=== PATIENT | female | born 1995 | race Caucasian/White ===

== ENCOUNTER 2022-03-10 10:13 | Outpatient (CLI) | payer OTHER, SELFPAY ==
[2022-03-10 10:43] LABS: Basophils Absolute Auto 0.1 K/mm3 (0.0-0.1); Basophils Percent Auto 0.5 % (0.2-1.2); Eosinophils Absolute Auto 0.1 K/mm3 (0-0.3); Eosinophils Percent Auto 0.7 % (0-4.4); Hematocrit 34.2 % (37.0-47.0); Immature Granulocyte Absolute 0.05 K/mm3 (0.00-0.031); Immature Granulocyte Percent A 0.5 % (0-0.5); Lymphocytes Percent Auto 13.3 % (18.3-44.2); Mean Corpuscular HGB Conc 32.2 g/dl (32-36); Mean Corpuscular Hemoglobin 28.7 pg (26-34); Mean Corpuscular Volume 89.3 fl (80-100); Mean Platelet Volume 9.4 fl (7.4-10.4); Monocytes Absolute Auto 0.6 K/mm3 (0.1-0.6); Monocytes Percent Auto 5.7 % (2.6-8.5); Neutrophils Absolute Auto 8.4 K/mm3 (1.3-6.7); Neutrophils Percent Auto 79.3 % (45.5-73.1); Platelet Count Result 286 k/mm3 (150-375); Red Blood Count 3.83 M/mm3 (4.2-5.4); Red Cell Distribution Width 13.6 % (11.5-14.5); White Blood Count 10.5 K/mm3 (4.5-10.0)
[2022-03-10 11:40] LABS: HIV 1/2 Ab P24 Ag Result Negative (Negative)
[2022-03-10 11:56] LABS: Hepatitis B Surface Antigen Negative (Negative); Rubella IgG Antibody 28.2 IU/ML
[2022-03-12 12:44] LABS: Rapid Plasma Reagin Non-Reactive (NonReactive)
== END 2022-03-10 10:14 | disposition home or self-care (01) ==
LOC: ANHLAB 10:16
PROVIDERS: PCP Family Medicine; Visit Provider Obstetrics & Gynecology
DX: N94.89 Other specified conditions associated with female genital organs and menstrual cycle (principal)
CPT/HCPCS: 36415; 81291; 85025; 86592; 86644; 86703; 86747; 86762; 86787; 86850; 86900; 86901; 87086; 87340; G0432

== ENCOUNTER 2022-07-21 11:00 | Outpatient (CLI) | payer BC, SELFPAY ==
[2022-07-21 13:17] LABS: Basophils Percent Auto 0.4 % (0.2-1.2); Eosinophils Percent Auto 0.5 % (0-4.4); Hematocrit 32.4 % (37.0-47.0); Hemoglobin 10.7 g/dL (12.0-15.0); Immature Granulocyte Absolute 0.04 K/mm3 (0.00-0.031); Immature Granulocyte Percent A 0.5 % (0-0.5); Lymphocytes Absolute Auto 1.64 K/mm3 (0.9-3.2); Lymphocytes Percent Auto 19.6 % (18.3-44.2); Mean Corpuscular Hemoglobin 31.1 pg (26-34); Mean Corpuscular Volume 94.2 fl (80-100); Mean Platelet Volume 9.3 fl (7.4-10.4); Monocytes Absolute Auto 0.3 K/mm3 (0.1-0.6); Monocytes Percent Auto 4.1 % (2.6-8.5); Neutrophils Absolute Auto 6.3 K/mm3 (1.3-6.7); Neutrophils Percent Auto 74.9 % (45.5-73.1); Platelet Count Result 284 k/mm3 (150-375); Red Blood Count 3.44 M/mm3 (4.2-5.4); Red Cell Distribution Width 13.5 % (11.5-14.5); White Blood Count 8.4 K/mm3 (4.5-10.0)
[2022-07-21 13:26] LABS: Glucose 1 Hour PP 50gm Dose 128 mg/dL
[2022-07-21 14:07] LABS: HIV 1/2 Ab P24 Ag Result Negative (Negative)
== END 2022-07-21 11:01 | disposition home or self-care (01) ==
LOC: ANHLAB 11:02
PROVIDERS: PCP Family Medicine; Visit Provider Obstetrics & Gynecology
DX: Z34.90 Encounter for supervision of normal pregnancy, unspecified, unspecified trimester (principal); Z3A.00 Weeks of gestation of pregnancy not specified
CPT/HCPCS: 36415; 82947; 85025; 86703; G0432

== ENCOUNTER 2022-09-25 15:28 | Outpatient (RCR) | payer BC, SELFPAY ==
--- NOTE | ~2022-09-25 | US_ITS ---
EXAMINATION: US OB BPP wo non-stress DATE: 09/25/2022 16:30 CDT INDICATION: Oligohydramnios TECHNIQUE: Real-time transabdominal obstetric ultrasound. FINDINGS: There is a single living fetus in vertex presentation. The placenta is anterior without placenta pre via. cardiac activity and movement is noted with a heart rate of 1:30 beats per minute. Biophysical profile: breathin of 2 movement: 2 of 2 tone: 2 of 2 Amniotic flud pocket: 2 of 2 Total score: 8 of 8 IMPRESSION: 1. Single living intrauterine in vertex presentation. 2: Total biophysical profile score of 8/8. Reviewed, dictated and finalized at location L.
[2022-09-25 15:45] VITALS: BP 113/69; PULSE 89
[2022-09-25 16:00] VITALS: BP 104/64; PULSE 94
[2022-09-25 17:16] VITALS: BP 104/64; PULSE 94
== END 2022-10-12 06:58 | disposition home or self-care (01) ==
LOC: ANHOBPP 15:28
PROVIDERS: Visit Provider Obstetrics & Gynecology
DX: O41.03X0 Oligohydramnios, third trimester, not applicable or unspecified (principal); Z3A.38 38 weeks gestation of pregnancy
CPT/HCPCS: 59025; 76819; J2795

== ENCOUNTER 2022-09-26 17:00 | Inpatient (IN) | payer BC, SELFPAY ==
[2022-09-26] VITALS (9 sets, daily range): BP systolic 102–119; BP diastolic 61–83; PULSE 77–98
[2022-09-26 18:55] LABS: Basophils Percent Auto 0.3 % (0.2-1.2); Eosinophils Percent Auto 0.4 % (0-4.4); Hematocrit 34.3 % (37.0-47.0); Hemoglobin 11.4 g/dL (12.0-15.0); Immature Granulocyte Absolute 0.05 K/mm3 (0.00-0.031); Immature Granulocyte Percent A 0.5 % (0-0.5); Lymphocytes Absolute Auto 2.32 K/mm3 (0.9-3.2); Mean Corpuscular HGB Conc 33.2 g/dl (32-36); Mean Corpuscular Hemoglobin 30.3 pg (26-34); Mean Corpuscular Volume 91.2 fl (80-100); Mean Platelet Volume 10.1 fl (7.4-10.4); Monocytes Absolute Auto 0.6 K/mm3 (0.1-0.6); Monocytes Percent Auto 5.7 % (2.6-8.5); Neutrophils Absolute Auto 7.5 K/mm3 (1.3-6.7); Neutrophils Percent Auto 71.1 % (45.5-73.1); Platelet Count Result 275 k/mm3 (150-375); Red Blood Count 3.76 M/mm3 (4.2-5.4); Red Cell Distribution Width 13.2 % (11.5-14.5); White Blood Count 10.5 K/mm3 (4.5-10.0)
[2022-09-26] MEDS: DINOPROSTONE 10 MG VAG INSERT VAGINAL (18:55)
--- NOTE | 2022-09-26 19:27 | LDADM ---
This patient, Kassidy Godoy, was admitted to Labor/Delivery/Recovery 104 on 09/26/22 at 17:00. Plans for labor, pain management and were discussed with patient. Patient/family oriented to hospital policies and general routines including ID bracelet, bed and alarms, visiting hours, pain management, procedures, bathroom and other care routines, personal items, smoking policy, room service/diet and guest tray routines, infant security routines, and visiting hours. Patient/Family are encouraged to report perceived risks to care and to ask questions if they do not understand what they are told or what they should do. See OBIX for further documentation.
[2022-09-26] MEDS: OXYTOCIN 30 UNITS/NS 500 ML 30 UNITS/500 ML BAG IV CONT (21:54)
[2022-09-26] MEDS: LACTATED RINGERS 1,000 ML 125 ML IV CONT (21:54)
--- NOTE | 2022-09-26 22:12 | WPDANESEPP ---
Anes - Eval Pre Procedure Procedure: Labor epidural Date/Time: 09/26/22 22:12 Surgeon: Jeremy Preop Diagnosis: Abdominal pain with contractions Pre Op Diagnosis: IOL Patient Data Age: 27 Gender: F Height: 1.65 m Weight: 60 kg Last Vital Signs O2 Del Method Room Air 09/26/22 19:26 Allergies Allergy/AdvReac Type Severity Reaction Status Date / Time No Known Allergies Allergy Verified 09/25/22 10:00 Home Medications Medication Instructions Recorded Confirmed Type aspirin 81 mg tablet,delayed 81 mg PO DAILY 01/30/22 09/25/22 History release (Adult Low Dose Aspirin) folic acid 800 mcg tablet 0.8 mg PO DAILY 01/30/22 09/25/22 History vitamins-iron fumarate 65 1 tablet PO DAILY 02/27/22 09/25/22 History mg iron-folic acid 1 mg tablet ferrous sulfate 325 mg (65 mg 325 mg PO DAILY 08/07/22 09/25/22 History iron) tablet (Feosol) Laboratory Tests 09/26/22 18:43 WBC 10.5 H K/mm3 (4.5-10.0) RBC 3.76 L M/mm3 (4.2-5.4) Hgb 11.4 L g/dL (12.0-15.0) Hct 34.3 L % (37.0-47.0) MCV 91.2 fl (80-100) MCH 30.3 pg (26-34) MCHC 33.2 g/dl (32-36) RDW 13.2 % (11.5-14.5) Plt Count 275 k/mm3 (150-375) MPV 10.1 fl (7.4-10.4) Immature Gran % (Auto) 0.5 % (0-0.5) Neut % (Auto) 71.1 % (45.5-73.1) Lymph % (Auto) 22.0 % (18.3-44.2) [place] % (Auto) 5.7 % (2.6-8.5) Eos % (Auto) 0.4 % (0-4.4) Baso % (Auto) 0.3 % (0.2-1.2) Lymph # (Auto) 2.32 K/mm3 (0.9-3.2) [place] # (Auto) 0.6 K/mm3 (0.1-0.6) Eos # (Auto) 0.0 K/mm3 (0-0.3) Baso # (Auto) 0.0 K/mm3 (0.0-0.1) Abs Immat Gran (auto) 0.05 H K/mm3 (0.00-0.031) Absolute Neuts (auto) 7.5 H K/mm3 (1.3-6.7) Absolute Nucleated RBC 0.0 K/mm3 (0.0-0.012) Nucleated RBC % 0.0 % (0.0-0.2) RPR Pending Blood Type A Positive Antibody Screen Negative : gestational age HCG: positive Patient hx anesthesia problems: none Family hx anesthesia problems: none Results Review: All pre-operative results and documents have been reviewed as part of the pre-operative evaluation. [facility] Past Medical History Medical History IUGR (intrauterine growth restriction) MTHFR gene mutation Murmur Oligohydramnios and not yet delivered Suppression of menstruation Surgical History Surgical History Hx of wisdom tooth extraction Family History Family History Grandparent Lung cancer Father Type 1 diabetes Social History Social History Smoking status: Never smoker Alcohol intake: never Substance use: never Substance use type: does not use Lack of Transportation: No Lack of Food: Never True Current Housing: I Have Housing Concerned About Future Housing: No Difficulty Paying Gas/Electric Bills: No Difficulty Paying for Meds: No Currently Unemployed: No Education: High School Diploma/GED Difficulty w/ Childcare or Family Care: No Living arrangements: other Additional living arrangements comments: Occupation/Education: occupation Additional occupation/education comments: teacher Gender identity (if verbalized by the patient): Female Sexual Orientation (if Verbalized by the Patient): Straight or Heterosexual Spiritual care concerns: No Exam Day of Procedure 09/26/22 22:12 Patient weight: normal Lungs: clear to auscultation Airway: Mallampati scale class II
[2022-09-27] VITALS (75 sets, daily range): BP systolic 101–147; BP diastolic 44–107; PULSE 66–135; RESP 16–18; TEMP 36.1–37.2; O2SAT 95–100
[2022-09-27] MEDS: CALCIUM CARBONATE (TUMS) 500 MG (200 MG ELEMENTAL) 400 MG PO (01:45)
[2022-09-27] MEDS: diphenhydrAMINE HCl CAP 25 MG CAPSULE PO (01:56)
[2022-09-27] MEDS: fentaNYL CITRATE INJ (*CRX) 100 MCG/2 ML VIAL 50 MCG IV PUSH ×2 (03:11→04:22)
[2022-09-27] MEDS: OXYTOCIN 30 UNITS/NS 500 ML 30 UNITS/500 ML BAG 125 UNITS IV CONT (07:46)
--- NOTE | 2022-09-27 08:38 | WPDHPUPDATE1 ---
History and Physical Update Update Date/Time: 09/27/22 08:38 History and Physical has been reviewed, including an updated exam of the patient. There are NO changes in the patient's condition. Risks, benefits, and alternatives have been discussed and questions answered. Patient agrees to proceed with procedure.
--- NOTE | 2022-09-27 08:38 | WPDOBADMIT ---
Obstetrics - Admit Note Admission Note: record reviewed. No pertinent additions to the history and/or any subsequent changes in the physical findings that are not consistent with the expected course of the were found. Additions to the history and/or subsequent changes in the physical findings follow. None.
--- NOTE | 2022-09-27 08:38 | PM.OBPRVD ---
OB - Delivery Note Procedure Events: Oligohydramnios Induction method: Per Cervidil Protocol Delivery augmentation: Pitocin Delivery monitor: External FHT and External Uterine Route of delivery: Episiotomy description: None Laceration Description: Perineal - 2nd Degree Delivery repair: chromic Specimen: Yes Quantitative Blood Loss (ml): 300 Anesthesia type: Epidural Disposition: Floor Complications: None Narrative: Patient prepped and draped in usual manner for this procedure. Maternal expulsive efforts readily delivered vertex over intact perineum. Nuchal cord was noted and readily reduced. Further effort delivered the rest the baby without difficulty. Cord was clamped cut and placenta delivered spontaneously. Second-degree laceration was noted and approximated using 2-0 chromic in a running interlocking manner in the vaginal area, deep tissue was approximated, and subcuticular layer to approximate the perineum. At this point the procedure was considered terminated with immediate postoperative condition of mother and baby both excellent. [place] [facility] Baby Weeks of gestation at delivery: 38 gender: Male presentation: vertex position: Right Occiput Anterior Placenta delivery description: Spontaneous Cord Vessel Description: 3 Vessels, Nuchal Cord and Reduced AMG Delivery Billing Delivery Delivery: Delivery Charge
--- NOTE | 2022-09-27 10:00 | OBPPTRN ---
Patient transferred to post room # 291 via wheelchair accompanied by spouse and . Pt introductions made and plan of care discussed per post , pain management, breast feeding, daily care activities. PT and spouse both recipients of such instructions and no barriers to learning identified at this time. PT received such instructions per one to one discussion, mom baby care guide and demonstrations this shift. Oriented to unit, room, information board, rooming in, admission packet and security measures. Patient verbalizes understanding.
[2022-09-27 14:00] LABS: Rapid Plasma Reagin Non-Reactive (NonReactive)
[2022-09-27] MEDS: IBUPROFEN 600 MG TABLET PO (16:48)
--- NOTE | 2022-09-27 17:24 | PM.OBDSVD ---
DS: Admitting Diagnosis Discharge Date 09/28/2022 Admitting Diagnosis DS: Discharge Diagnosis Discharge Diagnosis (1) , delivered: Code(s): O80 - Encounter for full-term uncomplicated delivery Status: Acute OB - DS: Summary OB Procedures : None OB Procedures Intrapartum: Spontaneous Vag Delivery OB Procedures: : None Time Spent with Patient Time attestation: Total time spent providing and/or coordinating discharge services: DS: Data Data Completed and Pending Pending studies at discharge: Pending at discharge 09/27/22 07:28 Surgical [PTH] Routine Labs on day of discharge: Labs from last 24 hours 09/26/22 18:43 WBC 10.5 H RBC 3.76 L Hgb 11.4 L Hct 34.3 L MCV 91.2 MCH 30.3 MCHC 33.2 RDW 13.2 Plt Count 275 MPV 10.1 Immature Gran % (Auto) 0.5 Neut % (Auto) 71.1 Lymph % (Auto) 22.0 [place] % (Auto) 5.7 Eos % (Auto) 0.4 Baso % (Auto) 0.3 Lymph # (Auto) 2.32 [place] # (Auto) 0.6 Eos # (Auto) 0.0 Baso # (Auto) 0.0 Abs Immat Gran (auto) 0.05 H Absolute Neuts (auto) 7.5 H Absolute Nucleated RBC 0.0 Nucleated RBC % 0.0 RPR Non-reactive Blood Type A Positive Antibody Screen Negative Discharge Plan Discharge Discharging Clinician: Don Luna Patient Disposition: Home, Self-Care Activity: as tolerated Diet: as tolerated Patient Instructions: Antibiotic Form Stand Alone Forms: General Discharge Information Follow-up/Referrals: Don Luna MD [Physician] - 3 Weeks Discharge Medications: New ibuprofen 600 mg Tablet 600 mg PO Q6H PRN (Reason: Cramping) Qty: 30 0RF Continued vit-iron fum-folic ac 65 mg iron- 1 mg tablet 1 tablet PO DAILY folic acid 800 mcg tablet 0.8 mg PO DAILY ferrous sulfate [Feosol] 325 mg (65 mg iron) tablet 325 mg PO DAILY Discontinued aspirin [Adult Low Dose Aspirin] 81 mg tablet,delayed release (DR/EC) 81 mg PO DAILY Date of admission: 09/26/22 17:00 Primary Care Provider: PHYSICIAN NOT ON STAFF,NONSTAFF Admitting Provider: Don Luna Attending physician on admission: Don Luna Condition: Stable
[2022-09-27] MEDS: LANOLIN (LANSINOH) 7.5 GM CREAM 1 APPLIC TOPICAL (18:25)
[2022-09-28 05:55] LABS: Hematocrit 28.4 % (37.0-47.0); Hemoglobin 9.1 g/dL (12.0-15.0)
[2022-09-28 07:45] VITALS: BP 105/60; PULSE 78; RESP 18; TEMP 37; O2SAT 100
--- NOTE | 2022-09-28 08:30 | PC.NURSE ---
Pt introductions made and plan of care discussed per post , pain management, breast feeding, daily care activities and pending discharge to home. PT and spouse both recipients of such instructions and no barriers to learning identified at this time. PT received such instructions per one to one discussion, mom baby care guide and demonstrations this shift. Patient verbalizes understanding.
[2022-09-28 10:30] VITALS: PULSE 78; RESP 18; O2SAT 100
[2022-09-28] MEDS: POLYSACCHARIDE IRON COMPLEX 150 MG CAPSULE (10:44)
[2022-09-28] MEDS: ACETAMINOPHEN 325 MG TABLET 650 MG PO (10:45)
[2022-09-28] MEDS: DOCUSATE SODIUM 100 MG CAPSULE PO (10:45)
[2022-09-28] MEDS: MULTIVIT/MIN/PREN/FOL AC/IRON TABLET 1 TAB PO (10:45)
[2022-09-28] MEDS: IBUPROFEN 600 MG TABLET PO (10:45)
--- NOTE | 2022-09-28 11:00 | PC.NURSE ---
PT received discharge instructions per protocol and verbalized understanding of such care. Patient was given the opportunity to view the discharge video Mother & Baby Care, The First Two Weeks and to ask questions. Patient declined viewing the video and has been given the mother/baby guide for home reference.
--- NOTE | 2022-09-28 11:35 | PC.NURSE ---
PT discharged to home ambulatory accompanied by spouse and and taken to waiting car. Follow up appts confirmed
--- NOTE | 2022-09-28 12:45 | PC.NURSE ---
[id number] Introductions were made and mother states is going well and without pain. Reviewed resources with Primary RN going over resources and discharge guidelines for her and her .
--- NOTE | 2022-09-28 13:01 | WPDANLDPN2 ---
Anes-Prog Note L&D Date/Time: 09/28/22 13:01 Neuro status: Neuro function grossly intact. Vital Signs: Last Vital Signs Temp 37.0 C 09/28/22 07:45 Pulse 78 09/28/22 10:30 Resp 18 09/28/22 10:30 BP 105/60 09/28/22 07:45 Pulse Ox 100 09/28/22 10:30 O2 Del Method Room Air 09/28/22 10:30 Pain score (VAS): 0 I/O: Intake & Output 09/27/22 09/28/22 09/28/22 23:59 07:59 15:59 Intake Total 480 Balance 480 Patient feedback: Patient satisfied with anesthetic care.
[2022-09-29 10:25] VITALS: BP 112/67; PULSE 96; RESP 18; TEMP 36.9; O2SAT 100
== END 2022-09-28 11:35 | disposition home or self-care (01) | DRG 807 ==
LOC: ANHLDR 17:10 → ANHOB2 09-27 10:01
PROVIDERS: Admitting Provider Obstetrics & Gynecology; Visit Provider Obstetrics & Gynecology
DX: O41.03X0 Oligohydramnios, third trimester, not applicable or unspecified (principal); Z37.0 Single live birth; O70.1 Second degree perineal laceration during delivery; O69.1XX0 Labor and delivery complicated by cord around neck, with compression, not applicable or unspecified; Z3A.38 38 weeks gestation of pregnancy
CPT/HCPCS: 36415; 59025; 76819; 85014; 85018; 85025; 86592; 86850; 86900; 86901; 88307; A9270; J2590; J2795; J3010; J7120

== ENCOUNTER 2023-02-09 10:38 | Outpatient (CLI) | payer OTHER, SELFPAY ==
[2023-02-09 10:58] LABS: Hematocrit 39.5 % (37.0-47.0); Hemoglobin 12.5 g/dL (12.0-15.0); Mean Corpuscular HGB Conc 31.6 g/dl (32-36); Mean Corpuscular Hemoglobin 28.6 pg (26-34); Mean Corpuscular Volume 90.4 fl (80-100); Mean Platelet Volume 10.2 fl (7.4-10.4); Platelet Count Result 275 k/mm3 (150-375); Red Blood Count 4.37 M/mm3 (4.2-5.4); Red Cell Distribution Width 13.2 % (11.5-14.5); White Blood Count 8.7 K/mm3 (4.5-10.0)
[2023-02-09 11:16] LABS: Alanine Aminotransferase 32 U/L (6-35); Albumin Level 4.8 g/dL (3.5-5.1); Alkaline Phosphatase 65 U/L (38-126); Anion Gap 6 mmol/L (8-16); Aspartate Amino Transferase 34 U/L (14-36); Bilirubin,Total 0.4 mg/dL (0.2-1.3); Blood Urea Nitrogen 13 mg/dL (7-17); Calcium 9.6 mg/dL (8.4-10.2); Carbon Dioxide 30 mmol/L (22-30); Chloride 101 mmol/L (98-107); Estimated Glomerular Filt Rate > 60; Glucose 88 mg/dL (65-110); Potassium 3.9 mmol/L (3.4-5.0); Sodium 137 mmol/L (137-145)
== END 2023-02-09 10:39 | disposition home or self-care (01) ==
LOC: ANHLAB 10:39
PROVIDERS: PCP Family Medicine; Visit Provider Physician Assistant Medical
DX: E78.2 Mixed hyperlipidemia (principal); R53.83 Other fatigue
CPT/HCPCS: 36415; 80053; 85027

== ENCOUNTER 2024-02-18 08:36 | Outpatient (CLI) | payer OTHER, SELFPAY ==
[2024-02-18 09:20] LABS: Basophils Percent Auto 0.5 % (0.2-1.2); Eosinophils Absolute Auto 0.1 K/mm3 (0-0.3); Eosinophils Percent Auto 0.8 % (0-4.4); Hematocrit 37.4 % (37.0-47.0); Hemoglobin 12.4 g/dL (12.0-15.0); Immature Granulocyte Absolute 0.02 K/mm3 (0.00-0.031); Immature Granulocyte Percent A 0.3 % (0-0.5); Lymphocytes Absolute Auto 1.77 K/mm3 (0.9-3.2); Lymphocytes Percent Auto 28.5 % (18.3-44.2); Mean Corpuscular HGB Conc 33.2 g/dl (32-36); Mean Corpuscular Hemoglobin 30.7 pg (26-34); Mean Corpuscular Volume 92.6 fl (80-100); Mean Platelet Volume 9.6 fl (7.4-10.4); Monocytes Absolute Auto 0.4 K/mm3 (0.1-0.6); Monocytes Percent Auto 6.5 % (2.6-8.5); Neutrophils Absolute Auto 3.9 K/mm3 (1.3-6.7); Neutrophils Percent Auto 63.4 % (45.5-73.1); Platelet Count Result 266 k/mm3 (150-375); Red Blood Count 4.04 M/mm3 (4.2-5.4); Red Cell Distribution Width 12.9 % (11.5-14.5); White Blood Count 6.2 K/mm3 (4.5-10.0)
[2024-02-18 10:12] LABS: HIV 1/2 Ab P24 Ag Result Negative (Negative)
[2024-02-18 10:23] LABS: Hepatitis B Surface Antigen Negative (Negative); Rubella IgG Antibody 24.5 IU/ML
[2024-02-19 09:48] LABS: Rapid Plasma Reagin Non-Reactive (NonReactive)
[2024-02-19 15:47] LABS: CMV IgG Antibody >10.00 U/mL; Varicella IgG Antibody 3.06 S/CO
== END 2024-02-18 08:37 | disposition home or self-care (01) ==
LOC: ANHLAB 08:40
PROVIDERS: PCP Family Medicine; Visit Provider Obstetrics & Gynecology
DX: N91.2 Amenorrhea, unspecified (principal)
CPT/HCPCS: 36415; 84702; 85025; 86592; 86644; 86703; 86747; 86762; 86787; 86850; 86900; 86901; 87086; 87340; G0432

== ENCOUNTER 2024-08-19 09:22 | Emergency (ER) | payer MEDICAID, SELFPAY ==
--- NOTE | 2024-08-19 09:26 | ED_ITS ---
HPI - URI/Sore Throat General Chief Complaint: Upper Respiratory Infection Stated Complaint: cough,sore throat,stuffy nose Time Seen by Provider: 08/19/24 09:25 Source: patient Mode of arrival: ambulatory Limitations: no limitations History of Present Illness HPI Narrative: Kassidy is a 29-year-old female patient presenting to the clinic today with complaints of cough, sore throat, and stuffy nose x 8 days. She reports no fevers, chest pain, shortness of breath, nausea, or vomiting. Seen her OBGYN 2 days ago and they the counter medications for her symptoms. Patient is 35 weeks . Related Data Home Medications ?Medication ?Instructions ?Recorded ?Confirmed ?Last Taken ?Type folic acid 800 mcg tablet 0.8 mg PO DAILY 01/30/22 08/17/24 1 Day Ago History ~09/11/22 vitamins-iron fumarate 65 1 tablet PO DAILY 02/27/22 08/17/24 1 Day Ago History mg iron-folic acid 1 mg tablet ~09/11/22 aspirin 81 mg tablet,delayed 81 mg PO DAILY 04/01/24 08/17/24 Unknown History release (Adult Low Dose Aspirin) Allergies Allergy/AdvReac Type Severity Reaction Status Date / Time No Known Allergies Allergy Verified 08/17/24 10:14 Review of Systems Review of Systems: Pertinent positives per HPI. Patient denies any fever, chills, rash, headache, visual changes, dizziness, shortness of breath, chest pain, palpitations, nausea, vomiting, diarrhea, constipation, abdominal pain, or any urinary issues. [facility] Past Medical History Medical History IUGR (intrauterine growth restriction) Murmur and not yet delivered Oligohydramnios Suppression of menstruation MTHFR gene mutation Surgical History Surgical History Hx of wisdom tooth extraction Family History Family History Grandparent Lung cancer Father Type 1 diabetes Social History Social History Smoking status: Never smoker Second hand tobacco smoke exposure: No Alcohol intake: former Alcohol use details: 1 a month Substance use: never Substance use type: does not use Do You Feel Safe in your Home?: Yes Lack of Transportation: No Lack of Food: Never True Current Housing: I Have Housing Concerned About Future Housing: No Difficulty Paying Gas/Electric Bills: No Difficulty Paying for Meds: No Currently Unemployed: No Education: Bachelor's Degree Difficulty w/ Childcare or Family Care: No Living arrangements: with family Additional living arrangements comments: Occupation/Education: occupation Additional occupation/education comments: teacher Gender identity (if verbalized by the patient): Female Sexual Orientation (if Verbalized by the Patient): Straight or Heterosexual Spiritual care concerns: No Comments At the time of my signature, I reviewed and agree with the nursing past medical, surgical, social, and family history. There is no relevant family history pertinent to the patient complaint. Exam Narrative: General: Well-developed, well nourished, in no apparent distress Head: Normocephalic, atraumatic Eyes: Pupils equally round and reactive to light bilaterally, EOM intact, sclera and conjunctive clear, no discharge, lids normal Ears: TMs intact and clear, ear canals clear, no drainage, grossly hearing normal. Nose: Nares patent, clear nasal discharge, no inflammation, no sinus tenderness. Mouth: Oral pharynx is red without lesions or masses, good dentition, MMM. Postnasal drip Neck: Supple, trachea midline, no enlargement of anterior or posterior cervical nodes, no thyroid masses or goiter palpable. Cardio: Regular rate and rhythm, s1 and s2 normal, no murmur appreciated. Resp: Clear to auscultation bilaterally, no rhonchi, rales, wheezing or rubs Course Course Emergency Course: Portions of this record may have been created with voice recognition software. Level of Care: Express Care Visit Vital Signs Vital signs: Vital Signs Temperature 37.1 C 08/19/24 09:31 Pulse Rate 115 H 08/19/24 09:31 Respiratory Rate 16 08/19/24 09:31 Blood Pressure 118/73 08/19/24 09:31 Pulse Oximetry 100 08/19/24 09:31 Temperature 37.1 C 08/19/24 09:31 Pulse Rate 115 H 08/19/24 09:31 Respiratory Rate 16 08/19/24 09:31 Blood Pressure 118/73 08/19/24 09:31 Pulse Oximetry 100 08/19/24 09:31 Vital signs reviewed MDM - URI/Sore Throat MDM Narrative Medical decision making narrative: At the time of visit patient is resting comfortably on the exam table. Patient appears to be nontoxic. Labs: Strep test was performed and negative in the clinic today. We will send strep for culture. Plan: I suspect patient has URI/pharyngitis. No obvious sign of bacterial infection. Supportive measures were discussed with the patient and they voiced understanding discharge instructions and agrees to treatment plan. Return precautions reviewed Differential Diagnosis Differential diagnosis: Likely upper respiratory infection, otitis media, sinusitis, viral infection, bronchitis, influenza, pharyngitis and other (COVID) Discharge Plan Discharge Clinical Impression: Upper respiratory infection Qualifiers: URI type: unspecified URI Qualified Code(s): J06.9 - Acute upper respiratory infection, unspecified Pharyngitis Qualifiers: Pharyngitis/tonsillitis etiology: unspecified etiology Qualified Code(s): J02.9 - Acute pharyngitis, unspecified Patient Disposition: Home Condition: Stable Instructions: Antibiotic Form, Pharyngitis (ED), Cold Symptoms (ED) Additional Instructions: Strep test was negative in the clinic today. We will send strep for culture. Take prescription medications only as prescribed Increase fluids and stay well hydrated Cool-mist humidifier at the bedside Tylenol for pain/fever Flonase and OTC antihistamines as directed Vicks vapor rub to open sinuses Sinus rinses for congestion Cepacol spray, cough drops, throat lozenges, warm tea with honey/lemon, gargle salt water to soothe throat BRAT diet for diarrhea Clear liquids x 24 hours then advance as tolerated for nausea/vomiting Go to the ED if you develop a worsening in your condition- high fever not controlled by Tylenol or Motrin, dehydration, weakness, lethargy, shortness of breath, or chest pain. Follow up with your PCP in 3-5 days if symptoms persist. Approved Medications for Patients Cold and Flu Symptoms --Tylenol (regular or extra Strength) Fever (call if over 101?)--Tylenol (regular or extra Strength) Nasal Drainage/Head Congestion--Chlor-Trimeton, Sudafed, Tavist,Tylenol Sinus Cough--Robitussin, Delsym, Mucinex Sore Throat--Chloraseptic, Cepacol lozenges Allergy Symptoms--Benadryl, Zyrtec, Zyrtec D, Claritin, Claritin D Nausea--Emetrol, Vitamin B6 Tablets, Pati, Pati Tea, Preggie Pops, B- Suckers Constipation--Milk of Magnesia, Metamucil, Fiberall, Konsyl, Colace (Docusate Sodium) Diarrhea--Imodium, Kaopectate, Follow BRAT diet: bananas, rice, applesauce, tea/toast Heartburn--Maalox, Mylanta, TUMS, Prilosec OTC, Zantac, Tagament, Prevacid, Pepcid Hemorrhoids--Tucks Pads, Anusol, Preparation H, warm sitz baths Patient Language: Azerbaijani Prescriptions: No Action vit-iron fum-folic ac 65 mg iron- 1 mg tablet 1 tablet PO DAILY aspirin [Adult Low Dose Aspirin] 81 mg tablet,delayed release (DR/EC) 81 mg PO DAILY folic acid 800 mcg tablet 0.8 mg PO DAILY Follow-up/Referrals: Audra Goncalves MD [Primary Care Provider] - Time of Disposition: 09:40 Quality NIHSS Nursing Documentation ED NIHSS nursing documentation: reviewed/agree
[2024-08-19 09:31] VITALS: BP 118/73; PULSE 115; RESP 16; TEMP 37.1; O2SAT 100
[2024-08-19 09:44] LABS: EDSTREPNEGPOS1 Negative (Negative)
== END 2024-08-19 09:44 | disposition home or self-care (01) ==
PROVIDERS: Emergency Provider Nurse Practitioner Family; PCP Family Medicine
DX: O99.513 Diseases of the respiratory system complicating pregnancy, third trimester (principal); J02.0 Streptococcal pharyngitis; O99.283 Endocrine, nutritional and metabolic diseases complicating pregnancy, third trimester; E72.12 Methylenetetrahydrofolate reductase deficiency; O99.891 Other specified diseases and conditions complicating pregnancy; R01.1 Cardiac murmur, unspecified; Z3A.35 35 weeks gestation of pregnancy
CPT/HCPCS: 87081; 87880; 99213; G0463

== ENCOUNTER 2024-09-19 09:00 | Inpatient (IN) | payer OTHER, SELFPAY ==
[2024-09-19] VITALS (16 sets, daily range): BP systolic 96–135; BP diastolic 52–92; PULSE 62–105; RESP 16–18; TEMP 36.1–36.9; O2SAT 99–100
--- OUTSIDE RECORDS SUMMARY | 2024-09-19 09:12 | XMS_ITS | Clinical Summary ---
Author Organization [facility] Address [address] [place] [address] Care Team Providers Care Supervisor Laboratory Animal Facility Name Role Phone Unavailable Primary Care Provider Unavailabl e Source Comments [facility],non-owned Affiliates and Associated Physician Practices is amultiple site organization consisting of ambulatory clinics and hospital sitesin [place], [place], [place] and [place]. This disclosure is being madepursuant to the Care Everywhere program and may not contain all information available regarding this patient. Last updated 18.[facility] [employer] Allergies No known active allergies Medications * Be aware that medications may not be up to date on this document. Alwaysverify current medications with the patient. aspirin (Aspirin) 81 MG chew tablet Take 1 (one) tablet by mouth once daily Active folic acid (Folvite) 1 MG tablet Take 4 (four) tablets by mouth once daily Active Vit-DSS-Fe Fum-FA ( vitamin with iron) tablet Take 1 (one) tablet by mouth once daily Active Active Problems Problem Noted Date Diagnosed Date Homozygous MTHFR mutation [id number] 04/11/2022 Fourth 04/11/2022 Family History Medical History Relation Name Comments Diabetes - Type 2 Father Relation Name Status Comments Brother 1 Alive Brother 2 Alive Father Alive Mother Alive Social History Tobacco Use Types Packs/Day Years Used Date Smoking Tobacco: Never Smokeless Tobacco: Never Tobacco Cessation:Counseling Given: Not Answered Alcohol Use Standard Drinks/Week Comments Not Currently 0 (1 standard drink = 0.6 oz pur e alcohol) PHQ-2 Answer Date Recorded PHQ2 TOTAL SCORE 0 04/18/2022 Comments No Sex and Gender Information Value Date Recorded Sex Assigned at Not on file Legal Sex Female 8:02 AM [employer] Gender Identity Not on file Sexual Orientation Not on file Last Filed Vital Signs Vital Sign Reading Time Taken Comments Blood Pressure 99/66 04/18/2022 11:16 AM [employer] Pulse 95 04/18/2022 11:16 AM [employer] Temperature - - Respiratory Rate - - Oxygen Saturation - - Inhaled Oxygen Concentration - - Weight 48.6 kg (107 lb 3.2 oz) 04/18/2022 11:16 AM [employer] Height 165.1 cm (5' 5) 04/18/2022 11:16 AM [employer] Body Mass Index 17.84 04/18/2022 11:16 AM [employer] Plan of Treatment Health Maintenance Due Date Last Done Comments PAP SMEAR 1993 HIV SCREENING 01/24/2008 HEPATITIS C SCREENING 01/19/2011 DTAP/TDAP/TD VACCINES (1 - Tdap) 01/24/2012 HEPATITIS B VACCINE (1 of 3 - 19+ 3-dose series) 01/24/2012 COVID-19 VACCINE (1 - 2023-2 5 season) 2023 DEPRESSION SCREENING 04/15/2024 04/18/2022 INFLUENZA VACCINE (Season Ended) 2024 01/31/20 22 ZOSTER VACCINE (1 of 2) 2043 HIB VACCINE Aged Out No longer eligi ble based on patient's age to complete this topic HPV VACCINE Aged Out No longer eligi ble based on patient's age to complete this topic MENINGOCOCCAL (Group B) VACC INE SHARED DECISION-MAKING Aged Out No longer eligibl e based on patient's age to complete this topic MENINGOCOCCAL GROUPS A/C/Y/W VACCINE Aged Out No longer eligible b ased on patient's age to complete this topic PNEUMOCOCCAL VACCINE Aged Out No long er eligible based on patient's age to complete this topic
[2024-09-19] MEDS: LACTATED RINGERS 1,000 ML 999 ML (09:25)
--- NOTE | 2024-09-19 09:33 | LDADM ---
This patient, Kassidy Godoy, was admitted to Labor/Delivery/Recovery 105 on 09/19/24 at 09:00. Plans for labor, pain management and were discussed with patient. Patient/family oriented to hospital policies and general routines including ID bracelet, bed and alarms, visiting hours, pain management, procedures, bathroom and other care routines, personal items, smoking policy, room service/diet and guest tray routines, infant security routines, and visiting hours. Patient/Family are encouraged to report perceived risks to care and to ask questions if they do not understand what they are told or what they should do. See OBIX for further documentation.
[2024-09-19 09:54] LABS: Basophils Percent Auto 0.2 % (0.2-1.2); Eosinophils Percent Auto 0.2 % (0-4.4); Hematocrit 35.5 % (37.0-47.0); Hemoglobin 11.5 g/dL (12.0-15.0); Immature Granulocyte Absolute 0.04 K/mm3 (0.00-0.031); Immature Granulocyte Percent A 0.4 % (0-0.5); Lymphocytes Absolute Auto 1.54 K/mm3 (0.9-3.2); Lymphocytes Percent Auto 15.3 % (18.3-44.2); Mean Corpuscular HGB Conc 32.4 g/dl (32-36); Mean Corpuscular Hemoglobin 28.7 pg (26-34); Mean Corpuscular Volume 88.5 fl (80-100); Mean Platelet Volume 10.4 fl (7.4-10.4); Monocytes Absolute Auto 0.5 K/mm3 (0.1-0.6); Monocytes Percent Auto 4.6 % (2.6-8.5); Neutrophils Percent Auto 79.3 % (45.5-73.1); Platelet Count Result 329 k/mm3 (150-375); Red Blood Count 4.01 M/mm3 (4.2-5.4); Red Cell Distribution Width 13.2 % (11.5-14.5); White Blood Count 10.1 K/mm3 (4.5-10.0)
[2024-09-19] MEDS: LACTATED RINGERS 500 ML 999 ML IV CONT (10:13)
--- NOTE | 2024-09-19 10:20 | WPDOBADMIT ---
Obstetrics - Admit Note Admission Note: record reviewed. No pertinent additions to the history and/or any subsequent changes in the physical findings that are not consistent with the expected course of the were found. Additions to the history and/or subsequent changes in the physical findings follow. None. @ 39.3wks admitted to L&D in active labor found to be 7/80/0 heart tones reassuring; cephalic had SROM, clear fluid shortly after arrival plan for
--- NOTE | 2024-09-19 10:21 | PM.OBPRVD ---
OB - Vaginal Delivery Note Procedure Delivery date: 09/19/24 Delivery monitor: External FHT and External Uterine Route of delivery: Episiotomy description: None Laceration Description: None Specimen: No Quantitative Blood Loss (ml): 100 Anesthesia type: None Disposition: Floor Complications: No immediate complications Baby Date of : 09/19/24 Time of : 10:10 Gestational Age by Date: 39 (.3) Infant gender: Female presentation: vertex position: Left Occiput Anterior (/compound (left hand by face)) Placenta delivery description: Expressed Cord Vessel Description: 3 Vessels, Nuchal Cord, Reduced and Delayed Cord Clamping score one minute: 9 score five minutes: 9 Narrative: Kassidy presented to Labor and delivery in active labor and was found to be 7 cm. Shortly after had spontaneous rupture membranes and clear. She progressed to complete dilation with strong to push pushed for approximately minutes with good maternal effort. She delivered the head over intact perineum. Nuchal cord was noted but loose and reduced. She easily delivered the 's shoulders and body without complication. The was immediately placed skin to skin and had spontaneous cry. Delayed cord clamping was performed. The umbilical cord was then doubly clamped and cut. A segment of the cord was collected for cord gases. The remaining cord blood was collected for typing. With Pitocin running and gentle downward traction on the cord, the placenta delivered without complication. Minimal bleeding was noted and her fundus was firm. She was examined and no lacerations were identified. Her uterus remained firm with minimal bleeding. Sponge, lap, instrument, and needle counts were correct at the end of the procedure. Mom and baby were left bonding in the birthing suite in stable condition.
[2024-09-19 10:30] LABS: Syphilis IgG/IgM Antibody Non-Reactive (Nonreactive)
[2024-09-19 10:44] LABS: HIV 1/2 Ab P24 Ag Result Negative (Negative)
[2024-09-19] MEDS: OXYTOCIN 30 UNITS/NS 500 ML 30 UNITS/500 ML BAG 125 UNITS IV CONT (10:48)
[2024-09-19] MEDS: IBUPROFEN 600 MG TABLET PO ×2 (11:00→11:51)
--- NOTE | 2024-09-19 12:56 | OBPPTRN ---
Patient transferred to post room #283 via wheelchair. Support person present. Oriented to unit, room, information board, rooming in, admission packet and security measures. Patient verbalizes understanding. with patient.
[2024-09-19] MEDS: ACETAMINOPHEN 325 MG TABLET 650 MG (13:38)
[2024-09-19] MEDS: IBUPROFEN SUSPENSION 200 MG/10 ML UDC 600 MG PO (20:12)
[2024-09-20 04:24] LABS: Hematocrit 29.6 % (37.0-47.0); Hemoglobin 9.3 g/dL (12.0-15.0)
[2024-09-20] MEDS: FOLIC ACID 0.4 MG TABLET 0.8 MG PO (08:53)
[2024-09-20] MEDS: DOCUSATE SODIUM 100 MG CAPSULE PO (08:53)
[2024-09-20] MEDS: POLYSACCHARIDE IRON COMPLEX 150 MG CAPSULE PO (08:53)
[2024-09-20] MEDS: MULTIVIT/MIN/PREN/FOL AC/IRON TABLET 1 TAB PO (08:53)
--- NOTE | 2024-09-20 09:00 | P.PNOB_ITS ---
OB - PN: Subj Subjective Date/time seen: 09/20/24 09:03 Narrative: PPD#1 Kassidy reports doing well today. 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 Her pain is controlled. She is tolerating regular diet, voiding, passing gas, and ambulating without issues. She is breast feeding. She would like to go home today. OB - PN: Obj Data Labs 09/20/24 03:54 Labs: Laboratory Results - last 24 hr 09/19/24 09:28 WBC 10.1 H RBC 4.01 L Hgb 11.5 L Hct 35.5 L MCV 88.5 MCH 28.7 MCHC 32.4 RDW 13.2 Plt Count 329 MPV 10.4 Immature Gran % (Auto) 0.4 Neut % (Auto) 79.3 H Lymph % (Auto) 15.3 L [place]rick % (Auto) 4.6 Eos % (Auto) 0.2 Baso % (Auto) 0.2 Lymph # (Auto) 1.54 Warrick # (Auto) 0.5 Eos # (Auto) 0.0 Baso # (Auto) 0.0 Abs Immat Gran (auto) 0.04 H Absolute Neuts (auto) 8.0 H Absolute Nucleated RBC 0.000 Nucleated RBC % 0.0 Syphilis IgG/IgM Ab Non-reactive HIV 1&2 Ab/P24 Ag 4thGn Negative Blood Type A Positive Antibody Screen Negative OB - PN A/P Assessment and Plan (1) Normal vaginal delivery: Code(s): O80 - Encounter for full-term uncomplicated delivery Status: Acute Plan day: 1 Plan: routine care Comments: - PO pain meds - Regular diet - Ambulation and hydration encouraged - Continue putting baby to breast q2-3hr - Liquid iron ordered - Pelvic rest; take meds as prescribed - ER return precautions: fever, n/v/abd pain, bleeding, HTN Time Spent With Patient Time: Total time spent is greater than 50% in coordination of care (as documented) at patient's floor/unit and/or counseling patient: Review of Systems 2 Constitutional: Constitutional: Denies chills, Denies fever(s) and Denies headache(s) Eyes: Eyes: Denies change in vision ENT: Denies dizziness and Denies headache(s) Cardiovascular: Cardiovascular: Denies chest pain, Denies palpitations and Denies dyspnea Respiratory: Respiratory: Denies cough and Denies dyspnea Gastrointestinal: Gastrointestinal: Denies nausea and Denies vomiting Neurologic: Denies dizziness and Denies headache(s) Endocrine: Endocrine: Denies palpitations Exam 2 Const: General: cooperative, comfortable and no acute distress O rientation/consciousness: patient oriented x3 Resp: Effort & Inspection: normal respiratory effort Auscultation: clear to auscultation bilaterally Cardio: Rate: regular rate GI: Inspection: non-distended GI Palp: No abdominal tenderness and Yes Soft to palpation Auscultation: normal bowel sounds : Other: fundus firm Skin: General skin exam: normal color Neuro: General: patient oriented x3 Extrem: General: normal to inspection Psych: Appearance: grossly normal Affect: normal affect Attitude: c ooperative
[2024-09-20 09:05] VITALS: BP 95/60; PULSE 80; RESP 16; TEMP 36.6; O2SAT 100
--- NOTE | 2024-09-20 10:21 | P.DS_ITS ---
DS: Admitting Diagnosis Discharge Date 09/20/24 Admitting Diagnosis Active labor at term DS: Discharge Diagnosis Discharge Diagnosis (1) Normal vaginal delivery: Code(s): O80 - Encounter for full-term uncomplicated delivery Status: Acute OB - DS: Summary OB Procedures : Ultrasound OB Procedures Intrapartum: Spontaneous Vag Delivery OB Procedures: : None Peripartum Data Infant Delivery Method: Natural Vaginal Laceration Description: None Episiotomy description: None complications: none 1: Gender: Female Disposition of : home Status at Discharge Functional status at discharge: independent ambulation Overall status at discharge: patient is back to baseline Time Spent with Patient Time attestation: Total time spent providing and/or coordinating discharge services: Exam Const: General: cooperative, healthy appearing, comfortable and no acute distress Orientation/consciousness: patient oriented x3 Resp: Effort & Inspection: normal respiratory effort Auscultation: clear to auscultation bilaterally Cardio: Rate: regular rate GI: Inspection: non-distended GI Palp: No abdominal tenderness and Yes Soft to palpation Auscultation: normal bowel sounds : Other: fundus firm Skin: General skin exam: normal color Neuro: General: patient oriented x3 Extrem: General: normal to inspection Psych: Appearance: grossly normal Affect: normal affect Attitude: cooperative DS: Data Data Completed and Pending Labs on day of discharge: Labs from last 24 hours 09/20/24 09/19/24 03:54 09:28 WBC 10.1 H RBC 4.01 L Hgb 9.3 L 11.5 L Hct 29.6 L 35.5 L MCV 88.5 MCH 28.7 MCHC 32.4 RDW 13.2 Plt Count 329 MPV 10.4 Immature Gran % (Auto) 0.4 Neut % (Auto) 79.3 H Lymph % (Auto) 15.3 L [place] % (Auto) 4.6 Eos % (Auto) 0.2 Baso % (Auto) 0.2 Lymph # (Auto) 1.54 [place] # (Auto) 0.5 Eos # (Auto) 0.0 Baso # (Auto) 0.0 Abs Immat Gran (auto) 0.04 H Absolute Neuts (auto) 8.0 H Absolute Nucleated RBC 0.000 Nucleated RBC % 0.0 Syphilis IgG/IgM Ab Non-reactive HIV 1&2 Ab/P24 Ag 4thGn Negative Blood Type A Positive Antibody Screen Negative Discharge Plan Discharge Discharging Clinician: Griselda Brown Anticipated Discharge Date/Time: 09/20/24 14:00 Patient Disposition: Home Activity: may shower and pelvic rest Diet: regular Patient Language: American Stand Alone Forms: General Discharge Information Follow-up/Referrals: Griselda Brown MD [Physician] - 4 Weeks Discharge Medications: New acetaminophen [Nortemp] 160 mg/5 mL Suspension 650 mg PO Q6H PRN (Reason: Mild Pain (1-3) Or Fever) Qty: 473 1RF ibuprofen 100 mg/5 mL Suspension 600 mg PO Q6H PRN (Reason: Abdominal Cramping) Qty: 473 1RF ferrous sulfate 300 mg (60 mg iron)/5 mL liquid 300 mg PO DAILY Qty: 500 0RF Continued vit-iron fum-folic ac 65 mg iron- 1 mg tablet 1 tablet PO DAILY folic acid 800 mcg tablet 0.8 mg PO DAILY Discontinued aspirin [Adult Low Dose Aspirin] 81 mg tablet,delayed release (DR/EC) 81 mg PO DAILY Date of admission: 09/19/24 09:00 Primary Care Provider: UNKNOWN,DOCTOR Admitting Provider: Don Luna Attending physician on admission: Don Luna Condition: Stable
--- NOTE | 2024-09-20 12:26 | PC.NURSE ---
Patient was given the opportunity to view the discharge video Mother & Baby Care, The First Two Weeks and to ask questions. Patient declined viewing the video and has been given the mother/baby guide for home reference.
[2024-09-21 13:01] VITALS: BP 103/56; PULSE 78; RESP 18; TEMP 36.5; O2SAT 100
== END 2024-09-20 14:15 | disposition home or self-care (01) | DRG 560 ==
LOC: ANHLDR 10:23 → ANHOB2 21:05 → ANHLDR 09-22 11:08
PROVIDERS: Admitting Provider Obstetrics & Gynecology; Visit Provider Obstetrics & Gynecology
DX: O32.6XX0 Maternal care for compound presentation, not applicable or unspecified (principal); Z37.0 Single live birth; Z3A.39 39 weeks gestation of pregnancy; O62.3 Precipitate labor; O69.81X0 Labor and delivery complicated by cord around neck, without compression, not applicable or unspecified
CPT/HCPCS: 36415; 85014; 85018; 85025; 86593; 86703; 86850; 86900; 86901; A9270; G0432; J2590; J2795; J7120